=== PATIENT | female | born 1970 ===

== ENCOUNTER 2017-08-18 05:17 | Day surgery (SDC) | payer SELFPAY ==
[2017-08-16 11:00] LABS: APPEARANCE,URINE SLIGHTLY-CLOUDY; BILIRUBIN,URINE NEGATIVE (NEGATIVE); COLOR,URINE YELLOW; GLUCOSE, URINE NEGATIVE (NEGATIVE); KETONES,URINE TRACE mg/dL (NEGATIVE); LEUKOCYTE ESTERASE,URINE NEGATIVE (NEGATIVE); NITRITE,URINE NEGATIVE (NEGATIVE); PROTEIN,URINE NEGATIVE (NEGATIVE); UROBILINOGEN,URINE NEGATIVE mg/dL (<2.0)
[2017-08-16 11:57] LABS: HEMATOCRIT 37.2 % (36.0-47.0); HEMOGLOBIN 11.8 g/dL (12.0-15.5); MEAN CORPUSCULAR HEMOGLOBIN 24.7 pg (27.0-33.4); MEAN CORPUSCULAR HGB CONC 31.9 g/dL (32.0-36.0); MEAN CORPUSCULAR VOLUME 77 fl (80-97); PLATELET COUNT 454 10^3/uL (150-450); RED CELL DISTRIBUTION WIDTH 17.1 % (11.5-14.0); WHITE BLOOD COUNT 7.6 10^3/uL (4.0-10.5)
[2017-08-16 12:28] LABS: ANION GAP 16 (5-19); BLOOD UREA NITROGEN 13 mg/dL (7-20); CALCIUM 9.5 mg/dL (8.4-10.2); CARBON DIOXIDE 24 mmol/L (22-30); CHLORIDE 105 mmol/L (98-107); GLUCOSE 98 mg/dL (75-110); POTASSIUM 4.5 mmol/L (3.6-5.0); SODIUM 144.7 mmol/L (137-145)
--- NOTE | 2017-08-16 15:16 | RADIOLOGY REPORT (SQ) ---
EXAM DESCRIPTION: CHEST PA/LATERAL COMPLETED DATE/TIME: 08/16/2017 12:25 pm REASON FOR STUDY: PRE OP COMPARISON: None. TECHNIQUE: Frontal and lateral radiographic views of the chest acquired. NUMBER OF VIEWS: Two view. LIMITATIONS: None. FINDINGS: LUNGS AND PLEURA: No opacities, masses or pneumothorax. No pleural effusion. MEDIASTINUM AND HILAR STRUCTURES: No masses or contour abnormalities. HEART AND VASCULAR STRUCTURES: Heart normal size. No evidence for failure. BONES: No acute findings. HARDWARE: None in the chest. OTHER: No other significant finding. IMPRESSION: NO SIGNIFICANT RADIOGRAPHIC FINDING IN THE CHEST. TECHNICAL DOCUMENTATION: JOB ID: [id number] [employer]- All Rights Reserved Reading location - IP/workstation name: [email or web address]
--- NOTE | 2017-08-16 23:44 | EKG REPORT ---
SEVERITY:- NORMAL ECG - SINUS RHYTHM : Confirmed by: Aurora Shanks 16-Aug-2017 23:43:31
[~2017-08-18 05:17] MED LIST: CEFAZOLIN 1 GM/D5W RTU 1 GM/50 ML RTUPB IV PRN; LACTATED RINGERS 1000 ML IV PRN; LIDOCAINE 0.5% INJ-PF (5 MG/ML) 50 ML SDV SUBCUT PRN
[2017-08-18] MEDS ORDERED: LIDOCAINE 1%/EPINEPHRINE INJ 20 ML VIAL ONE (07:03)
[2017-08-18] MEDS ORDERED: MIDAZOLAM 2 MG/2 ML INJ ONE (07:07)
[2017-08-18] MEDS ORDERED: KETAMINE HCL INJ 500 MG/10 ML VIAL ONE (07:08)
[2017-08-18] MEDS ORDERED: SCOPOLAMINE HYDROBROMIDE 1.5 MG PATCH.TD72 ONE (07:08)
[2017-08-18] MEDS ORDERED: PROPOFOL INJ 200 MG/20 ML VIAL IV ONE ×2 (07:08→07:29)
[2017-08-18] MEDS ORDERED: FAMOTIDINE INJ/PF 20 MG/2 ML SDV IV ONE (07:08)
[2017-08-18] MEDS ORDERED: FENTANYL CITRATE INJ/PF 100 MCG/2 ML AMPUL IV PRN ×3 (07:32)
[2017-08-18] MEDS ORDERED: OXYCODONE-ACETAMINOPHEN 5-325 MG TABLET PO PRN ×3 (07:32→09:00)
[2017-08-18] MEDS ORDERED: DIPHENHYDRAMINE HCL 50 MG/ML VIAL IV PRN (07:32)
[2017-08-18] MEDS ORDERED: MEPERIDINE HCL/PF INJ 25 MG/1 ML DISP.SYRIN IV PRN (07:32)
[2017-08-18] MEDS ORDERED: PROMETHAZINE HCL INJ 25 MG/1 ML VIAL IV PRN ×2 (07:32)
[2017-08-18] MEDS ORDERED: ACETAMINOPHEN 100 ML IV ONE (08:25)
[2017-08-18] MEDS ORDERED: KETOROLAC TROMETHAMINE INJ/PF 30 MG/1 ML SDV ONE (08:25)
[2017-08-18] MEDS ORDERED: FENTANYL CITRATE INJ/PF 100 MCG/2 ML AMPUL ONE (08:43)
--- NOTE | 2017-08-18 08:49 | OPERATIVE REPORT E ---
Operative Report NAME: CHRIS GAMBINO : 1970 AGE: 46Y DATE OF SURGERY: 08/18/2017 ROOM: PREOPERATIVE DIAGNOSIS: CIN3 lesion of the cervix, fibroids. POSTOPERATIVE DIAGNOSIS: CIN3 lesion of the cervix, fibroids. PROCEDURES: 1. Cold knife conization. 2. D and C. 3. Hysteroscopy. 4. ECC. SURGEON: WALE PITTMAN M.D. COMPLICATIONS: None. ANESTHESIA: LMAC, 1% lidocaine with epinephrine. FINDINGS: An enlarged uterus approximately 16-18 week size. Normal vagina. Normal cervix. Bladder was drained under sterile technique. INDICATIONS FOR PROCEDURE: The patient has CIN3 lesion of the cervix. Brought in for conization for further assessment. Curettage for endometrial biopsy is also going to be performed. Preparation for possible hysterectomy. The usual risks of bleeding, infection, anesthesia, and damage to organs and tissues have been discussed and the patient understood. DESCRIPTION OF PROCEDURE: The patient was taken to the operating room and placed in the modified lithotomy position. After adequate anesthesia was ascertained, prepped and draped in the usual manner for a cold knife conization. EUA was performed. Bladder drained under sterile technique. Surgical timeout was performed. Stay sutures were placed at the 3 and 9 o'clock position after the cervix was infiltrated with 1% lidocaine with epinephrine. The conization ensued. The specimen was marked at 12 o'clock position. The endocervical curettage followed. The cervix was dilated to *------* hysteroscope and hysteroscopy ensued demonstrating large cavity, but no polyps or fibroids appreciated. Sharp curettage of the endometrium was then performed. At completion of the procedure, the bed of the cervix was oversewn with 3-0 Chromic catgut suture and good hemostasis was noted. Monsel's was placed. Instruments were removed. The patient was taken to the recovery room in stable condition. DICTATING PHYSICIAN: WALE PITTMAN M.D. [id number] PHY#: [id number] ID: [id number] JOB#: [id number] ACCT: [id number] cc:WALE PITTMAN M.D. >
[2017-08-18] MEDS ORDERED: PROMETHAZINE HCL INJ 25 MG/1 ML VIAL IM PRN (09:00)
[2017-08-18] MEDS ORDERED: MORPHINE INJ 4 MG DOSE (EDIT ROUTE) INJ PRN (09:00)
[2017-08-18] MEDS ORDERED: LIDOCAINE 2% INJ-PF (20 MG/ML) 2 ML AMPUL ONE (09:55)
[2017-08-18 11:43] VITALS: BP 147/96
[2017-08-18] MEDS ORDERED: IBUPROFEN 800 MG TABLET PO SCH (14:00)
== END 2017-08-18 10:15 | disposition home or self-care (01) ==
LOC: OROUT 05:17
PROVIDERS: ATTEND Specialist
DX: D06.0 Carcinoma in situ of endocervix (principal); D25.9 Leiomyoma of uterus, unspecified; N80.9 Endometriosis, unspecified
CPT/HCPCS: 93005; 86900; 86901; 36415; 86850; 85027; 81025; 80048; 81001; 88305 ×2; 88307 ×2; 71046; 93010; 57520; 58558; J2250; J0690; J3010; J3490 ×3; J1885; J2704; S0028; J0131; 952

== ENCOUNTER 2018-01-25 05:28 | Inpatient (IN) | payer SELFPAY ==
[2018-01-23 12:24] LABS: HEMATOCRIT 34.2 % (36.0-47.0); HEMOGLOBIN 11.3 g/dL (12.0-15.5); MEAN CORPUSCULAR HEMOGLOBIN 27.6 pg (27.0-33.4); MEAN CORPUSCULAR HGB CONC 32.9 g/dL (32.0-36.0); MEAN CORPUSCULAR VOLUME 84 fl (80-97); PLATELET COUNT 615 10^3/uL (150-450); RED BLOOD COUNT 4.08 10^6/uL (3.72-5.28); RED CELL DISTRIBUTION WIDTH 17.3 % (11.5-14.0); WHITE BLOOD COUNT 6.5 10^3/uL (4.0-10.5)
[2018-01-23 12:38] LABS: APPEARANCE,URINE HAZY; BILIRUBIN,URINE NEGATIVE (NEGATIVE); COLOR,URINE STRAW; GLUCOSE, URINE NEGATIVE (NEGATIVE); KETONES,URINE NEGATIVE (NEGATIVE); LEUKOCYTE ESTERASE,URINE NEGATIVE (NEGATIVE); NITRITE,URINE NEGATIVE (NEGATIVE); PROTEIN,URINE NEGATIVE (NEGATIVE); UROBILINOGEN,URINE NEGATIVE mg/dL (<2.0)
[2018-01-23 12:43] LABS: URINE SPECIFIC GRAVITY 1.005
[2018-01-23 12:48] LABS: ANION GAP 10 (5-19); BLOOD UREA NITROGEN 8 mg/dL (7-20); CALCIUM 9.9 mg/dL (8.4-10.2); CARBON DIOXIDE 25 mmol/L (22-30); CHLORIDE 106 mmol/L (98-107); GLUCOSE 90 mg/dL (75-110); POTASSIUM 5.4 mmol/L (3.6-5.0); SODIUM 140.5 mmol/L (137-145)
[~2018-01-25 05:28] MED LIST changes: +CEFAZOLIN 1 GM/D5W RTU 1 GM/50 ML RTUPB IV ONE
[2018-01-25] MEDS ORDERED: BUPIVACAINE INJ/PF LIPOSOME/PF 266 MG/20 ML SDV ONE (06:44)
[2018-01-25] MEDS ORDERED: FENTANYL CITRATE INJ/PF 250 MCG/5 ML AMPULE ONE (06:45)
[2018-01-25] MEDS ORDERED: EPHEDRINE SULFATE INJ 50 MG/1 ML AMPULE ONE (06:45)
[2018-01-25] MEDS ORDERED: MIDAZOLAM 2 MG/2 ML INJ ONE (06:45)
[2018-01-25] MEDS ORDERED: DEXMEDETOMIDINE INJ 80 MCG/20 ML VIAL IV ONE (06:45)
[2018-01-25] MEDS ORDERED: ACETAMINOPHEN 1,000 MG/100 ML RTUPB IV ONE (06:46)
[2018-01-25] MEDS ORDERED: MORPHINE SULFATE 10 MG/ML INJ ONE ×3 (06:46→11:23)
[2018-01-25] MEDS ORDERED: PROPOFOL INJ 200 MG/20 ML VIAL IV ONE (06:46)
[2018-01-25] MEDS ORDERED: LIDOCAINE 2% INJ-PF (20 MG/ML) 10 ML AMPUL ONE (06:49)
[2018-01-25] MEDS ORDERED: PROMETHAZINE HCL INJ 25 MG/1 ML VIAL IV PRN ×2 (07:03)
[2018-01-25] MEDS ORDERED: MEPERIDINE HCL/PF INJ 25 MG/1 ML DISP.SYRIN IV PRN (07:03)
[2018-01-25] MEDS ORDERED: FENTANYL CITRATE INJ/PF 100 MCG/2 ML AMPUL IV PRN ×3 (07:03)
[2018-01-25] MEDS ORDERED: MORPHINE SULFATE 10 MG/ML INJ IV PRN (07:03)
[2018-01-25] MEDS ORDERED: DIPHENHYDRAMINE HCL 50 MG/ML VIAL IV PRN (07:03)
[2018-01-25] MEDS ORDERED: ONDANSETRON HCL INJ/PF 4 MG/2 ML SDV IV PRN (07:48)
[2018-01-25] MEDS ORDERED: GLYCOPYRROLATE 1 MG/5 ML SYRINGE ONE (08:57)
[2018-01-25] MEDS ORDERED: SUCCINYLCHOLINE CHLORIDE INJ 200 MG/10 ML VIAL ONE (08:57)
[2018-01-25] MEDS ORDERED: DEXAMETHASONE SOD PHOSPHATE INJ 4 MG/1 ML VIAL ONE (08:57)
[2018-01-25] MEDS ORDERED: KETOROLAC TROMETHAMINE 60 MG/2 ML SDV ONE (08:57)
[2018-01-25] MEDS ORDERED: ONDANSETRON HCL INJ/PF 4 MG/2 ML SDV ONE (08:57)
[2018-01-25] MEDS ORDERED: METOCLOPRAMIDE HCL INJ/PF 10 MG/2 ML SDV ONE (08:57)
[2018-01-25] MEDS ORDERED: MORPHINE SULFATE 10 MG/ML INJ INJ ONE (09:35)
[2018-01-25] MEDS ORDERED: FENTANYL CITRATE INJ/PF 100 MCG/2 ML AMPUL ONE (09:56)
[2018-01-25] MEDS ORDERED: MORPHINE INJ 6 MG DOSE (EDIT ROUTE) INJ PRN (11:30)
[2018-01-25] MEDS ORDERED: PROMETHAZINE HCL INJ 25 MG/1 ML VIAL IM PRN (11:30)
[2018-01-25] MEDS ORDERED: MORPHINE INJ 8 MG DOSE IM PRN (11:30)
[2018-01-25] MEDS ORDERED: MORPHINE INJ 4 MG DOSE (EDIT ROUTE) INJ PRN (11:30)
[2018-01-25] MEDS: CEFAZOLIN 1 GM RTU (EDIT START TIME) IV SCH ×2 (12:09→17:34)
[2018-01-25] MEDS: IBUPROFEN 800 MG TABLET PO SCH ×2 (13:33→21:24)
--- NOTE | 2018-01-25 14:46 | OPERATIVE REPORT E ---
Operative Report NAME: CHRIS GAMBINO : 1970 AGE: 47Y DATE OF SURGERY: 01/25/2018 ROOM: 210 PREOPERATIVE DIAGNOSES: 1. UTERINE LEIOMYOMA. 2. HISTORY OF CIN3 OF THE CERVIX STATUS POST CONIZATION. OPERATION: TOTAL ABDOMINAL HYSTERECTOMY. SURGEON: WALE PITTMAN M.D. COMPLICATIONS: None. ANESTHESIA: General endotracheal. ESTIMATED BLOOD LOSS: Approximately 250 mL. FINDINGS: A 20 week size uterus, normal tubes and ovaries are appreciated. Normal upper abdomen. INDICATION FOR PROCEDURE: The patient had symptomatic uterine leiomyoma, incidentally noted abnormal cervix. This was addressed in early hospitalization and conization. The usual risks of bleeding, infection, anesthesia, damage to organs and tissue were discussed with the patient, who understood. PROCEDURE: The patient was taken to the operating room and placed in modified lithotomy position. After adequate anesthesia was ascertained, for a hysterectomy. Due to the size of the uterus, a midline scar was used extending from the umbilicus down to the midline to the symphysis pubis. This was extended fascia. The peritoneum was entered without difficulty. The uterus was able to exteriorized due to its mobility. It was brought out into the operative field. Using Energy retractors and a bladder blade, retraction was possible. The round ligaments were identified, cross clamped, cut, and held. Utero-ovarian ligaments were cauterized and extended the incision down to the level of the uterine vessels bilaterally using LigaSure device as well as sharp dissection and usage of #1 chromic catgut. This dissection continued with advancement of bladder continuously to the level of the cervix, which is amputated with the uterus from the vagina. The vagina was then closed with interrupted #1 chromic catgut. Good hemostasis noted. The bladder was noted to be well out of the operative field as well as the ureters bilaterally. Cervix and uterus handed off the operative field. The pedicles were identified and noted to be dry. EXPAREL was placed in the fascial layer, and the fascia was then closed with double-stranded PDS suture. Subcutaneous stitch of 3-0 plain gut was placed, and skin closed with skin cari. Sponge and needle counts correct. DICTATING PHYSICIAN: WALE PITTMAN M.D. [id number] PHY#: [id number] ID: [id number] JOB#: [id number] ACCT: [id number] cc:WLAE PITTMAN M.D. >
[2018-01-25] MEDS: OXYCODONE-ACETAMINOPHEN 5-325 MG TABLET PO PRN ×2 (15:58→20:32)
[2018-01-25] MEDS ORDERED: HYDROXYZINE PAMOATE 25 MG CAPSULE PO PRN (21:04)
[2018-01-25] MEDS: SIMETHICONE 80 MG TAB.CHEW PO PRN (21:24)
[2018-01-26] MEDS: SIMETHICONE 80 MG TAB.CHEW PO PRN (03:34)
[2018-01-26] MEDS: OXYCODONE-ACETAMINOPHEN 5-325 MG TABLET PO PRN ×2 (03:34→08:09)
[2018-01-26 05:16] LABS: HEMATOCRIT 23.6 % (36.0-47.0); MEAN CORPUSCULAR HEMOGLOBIN 28.2 pg (27.0-33.4); MEAN CORPUSCULAR HGB CONC 33.9 g/dL (32.0-36.0); MEAN CORPUSCULAR VOLUME 83 fl (80-97); PLATELET COUNT 455 10^3/uL (150-450); RED BLOOD COUNT 2.84 10^6/uL (3.72-5.28); RED CELL DISTRIBUTION WIDTH 16.9 % (11.5-14.0); WHITE BLOOD COUNT 11.3 10^3/uL (4.0-10.5)
[2018-01-26] MEDS: IBUPROFEN 800 MG TABLET PO SCH (06:26)
[2018-01-26 08:54] VITALS: BP 139/90
== END 2018-01-26 09:05 | disposition home or self-care (01) | DRG 743 ==
LOC: INOR 05:28 → 2N 10:50
PROVIDERS: ADMIT Specialist; ATTEND Specialist
PROC: 0UT90ZZ Resection of Uterus, Open Approach (ICD-10-PCS; principal; 2018-01-25 07:15)
DX: D25.1 Intramural leiomyoma of uterus (principal); N80.9 Endometriosis, unspecified; F41.8 Other specified anxiety disorders; Z87.891 Personal history of nicotine dependence
CPT/HCPCS: 36415; 80048; 81001; 81025; 840; 84132; 85027; 86850; 86900; 86901; 88307; 94799; C9290; J0131; J0330; J0690; J1100; J1885; J2250; J2270; J2405; J2704; J2765; J3010; J3490; J7120